=== PATIENT | female | born 1985 | race Caucasian/White ===

== ENCOUNTER 2022-01-04 10:52 | Emergency (ER) | payer OTHER ==
[~2022-01-04] VITALS: Ht 160 cm; Wt 54.4 kg
[2022-01-04 10:54] VITALS: BP 110/60
--- NOTE | 2022-01-04 10:57 | NUR ---
PT EDWIN AND TAKEN TO LOBBY
[2022-01-04] MEDS ORDERED: BACITRACIN OINT 500 UNITS/GM PKT TP ONE (11:22)
[2022-01-04] MEDS ORDERED: BACI1PAC6 TP (11:28)
--- NOTE | 2022-01-04 11:44 | NUR ---
Patient discharged with v/s stable. Written and verbal after care instructions given and explained. Patient alert, oriented and verbalized understanding of instructions. Ambulatory with steady gait. All questions addressed prior to discharge. ID band removed. Patient advised to follow up with PMD. Rx of bacitraction given. Patient educated on indication of medication including possible reaction and side effects. Opportunity to ask questions provided and answered. Addendum: 01/04/22 at 1146 by MICHEALJJ NO NURSING CARE RENDERED
== END 2022-01-04 11:35 | disposition home or self-care (01) ==
LOC: MED 10:52
DX: L03.011 Cellulitis of right finger (principal); F17.210 Nicotine dependence, cigarettes, uncomplicated; Z79.2 Long term (current) use of antibiotics
CPT/HCPCS: 99282